=== PATIENT | female | born 1985 | race Asian ===

== ENCOUNTER 2018-02-06 01:24 | Emergency (ER) | payer OTHER ==
[~2018-02-06] VITALS: Ht 157.5 cm; Wt 52.3 kg
[2018-02-06 01:30] VITALS: BP 125/87; TEMP 97.7
[2018-02-06 02:59] VITALS: PULSE 64
== END 2018-02-06 02:59 | disposition home or self-care (01) ==
LOC: COL.ER 01:24
DX: R09.89 Other specified symptoms and signs involving the circulatory and respiratory systems (principal)
CPT/HCPCS: J1100